=== PATIENT | female | born 1995 | race American Indian/Alaskan Native ===

== ENCOUNTER 2017-05-10 01:42 | Emergency (ER) | payer SELFPAY ==
[2017-05-10 02:05] VITALS: BP 126/74
== END 2017-05-10 09:01 | disposition left against medical advice (07) ==
LOC: ED 01:42
DX: H92.09 Otalgia, unspecified ear (principal); Z53.21 Procedure and treatment not carried out due to patient leaving prior to being seen by health care provider

== ENCOUNTER 2019-08-04 23:24 | Outpatient (CLI) | payer OTHER ==
[2019-08-05 01:08] VITALS: BP 129/74
== END 2019-08-05 01:44 | disposition home or self-care (01) ==
LOC: TRG 23:24 → APU 08-05 00:33 → TRG 08-05 01:44
PROVIDERS: ATTEND Obstetrics & Gynecology
DX: O26.892 Other specified pregnancy related conditions, second trimester (principal); Z3A.27 27 weeks gestation of pregnancy
CPT/HCPCS: 59025